=== PATIENT | male | born 1940 | race Hispanic/Latino ===

== ENCOUNTER → 2022-08-19 | Outpatient (CLI) | payer OTHER ==
[~2022-08-19] MED LIST: ALLEGRA60 MG PO; AMIODARONE HCL200 MG PO; AMLODIPINE BESYL5 MG PO; ASPIRIN81 MG PO; CRESTOR5 MG PO; CYCLOBENZAPRINE10 MG PO; DOCUSATE SODIU100 MG PO; DUEXIS 800-26.1 EACH PO; ECOTRIN325 MG PO; FOLIC ACID0.4 MG PO; GLUCOPHAGE500 MG PO; HUMALOG MI100 UNIT/1 SQ; HYZAAR 100-12.1 EACH PO; IRON PO; LASIX40 MG PO; LOSARTAN POTASS50 MG PO; NITROGLYCERIN0.4 MG SL; PLAVIX75 MG PO; POTASSIUM CHLO10 MEQ PO; VITAMIN B-121000 MCG PO; VITAMIN B6 PO; VITAMIN E400 UNI3 PO; XARELTO20 MG PO; vitamin C PO
== END ==
LOC: RAD 11:58
PROVIDERS: ATTEND Family Medicine
DX: M25.552 Pain in left hip (principal); W19.XXXA Unspecified fall, initial encounter